=== PATIENT | female | born 1970 | race Caucasian/White ===

== ENCOUNTER 2022-02-04 09:34 | Outpatient (CLI) | payer BC | END 2022-02-04 09:35 | disposition home or self-care (01) | LOC: CSHCT 09:34 | PROVIDERS: ATTEND Surgery | DX: M50.30 Other cervical disc degeneration, unspecified cervical region (principal); M48.02 Spinal stenosis, cervical region; Z98.890 Other specified postprocedural states | CPT/HCPCS: 72125; 72141 ==